=== PATIENT | male | born 1990 | race Two or more races ===

== ENCOUNTER 2017-07-27 19:48 | Emergency (ER) | payer SELFPAY ==
[2017-07-27 20:52] LABS: CHLORIDE,CL 102 mmol/L (101-111); SODIUM,NA 137 mmol/L (135-145)
[2017-07-27] MEDS ORDERED: Sodium Chloride 0.9% 1,000 ML IV ONE (20:56)
[2017-07-27] MEDS ORDERED: Iopamidol 612 MG/ML 100 ML Bottle IVPUSH ONE (20:56)
[2017-07-27] MEDS ORDERED: Acetaminophen 325 MG Tab PO ONE (22:19)
--- NOTE | 2017-07-27 22:23 | EDM.PDOC ---
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 Joint pain on thursday. 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 [No Known Home Meds] 07/27/17 [History] Past Medical History - Past Surgical History Other Musculoskeletal Surgeries/Procedures:: left hand surgery Social & Family History - Tobacco Use Smoking Status *Q: Never Smoker Second Hand Smoke Exposure: No - Caffeine Use Caffeine Use: Reports: Coffee, Soda, Tea - Recreational Drug Use Recreational Drug Use: No ED ROS GENERAL - Review of Systems Review Of Systems: See Below Constitutional: Reports: Fever, Malaise, Decreased Appetite HEENT: Reports: No Symptoms Respiratory: Reports: No Symptoms Cardiovascular: Reports: No Symptoms GI/Abdominal: Reports: Diarrhea, Decreased Appetite. Denies: Nausea, Vomiting : Reports: No Symptoms Skin: Reports: No Symptoms Neurological: Reports: No Symptoms Psychiatric: Reports: No Symptoms ED EXAM, GI/ABD - Physical Exam Exam: See Below Exam Limited By: No Limitations General Appearance: Alert, Mild Distress Eyes: Bilateral: EOMI Ears: Normal External Exam Nose: Normal Inspection Throat/Mouth: Normal Inspection, Normal Lips Head: Atraumatic, Normocephalic Neck: Normal Inspection, Supple, Full Range of Motion Respiratory/Chest: No Respiratory Distress, Lungs Clear, Normal Breath Sounds Cardiovascular: Normal Peripheral Pulses, Regular Rate, Rhythm GI/Abdominal Exam: Normal Bowel Sounds (upper), Soft, No Distention. No: Distended, Guarding, Rigid Extremities: Normal Inspection, Normal Range of Motion Neurological: Alert, Oriented, Normal Cognition Psychiatric: Normal Affect, Normal Mood Skin Exam: Warm, Dry, Intact, Normal Color Course - Vital Signs Last Recorded V/S: Last Vital Signs Temp 100.2 F 07/27/17 22:40 Pulse 100 07/27/17 22:40 Resp 19 07/27/17 22:40 BP 128/81 07/27/17 22:40 Pulse Ox 100 07/27/17 22:40 - Orders/Labs/Meds Orders: Active Orders 24 hr Category Date Time Status CULTURE STREP A CONFIRMATION [] Stat Lab 07/27/17 21:58 Results STREP SCRN A RAPID W CULT CONF [] Stat Lab 07/27/17 21:58 Results Labs: Laboratory Tests 07/27/17 07/27/17 07/27/17 Range/Units 20:28 20:28 20:28 WBC 10.2 H (5.0-10.0) 10^3/uL RBC 4.85 (4.6-6.2) 10^6/uL Hgb 14.8 (14.0-18.0) g/dL Hct 42.8 (40.0-54.0) % MCV 88.2 (80-100) fL MCH 30.5 (27.0-34.0) pg MCHC 34.6 (33.0-35.0) g/dL Plt Count 235 (150-450) 10^3/uL Neut % (Auto) 69.2 (42.2-75.2) % Lymph % (Auto) 17.9 L (20.5-50.1) % [place] % (Auto) 12.0 H (2-8) % Eos % (Auto) 0.6 L (1.0-3.0) % Baso % (Auto) 0.3 (0.0-1.0) % Sodium 137 (135-145) mmol/L Potassium 4.0 (3.6-5.0) mmol/L Chloride 102 (101-111) mmol/L Carbon Dioxide 25.0 (21.0-31.0) mmol/L Anion Gap 14.0 BUN 8 (7-18) mg/dL Creatinine 1.0 (0.6-1.3) mg/dL Est Cr Clr Drug Dosing 150.42 mL/min Estimated GFR (MDRD) > 60 BUN/Creatinine Ratio 8.00 Glucose 127 H (74-105) mg/dL Lactic Acid 1.5 (0.5-2.2) mmol/L Calcium 8.7 (8.4-10.2) mg/dl Total Bilirubin 0.8 (0.2-1.0) mg/dL AST 43 H (10-42) IU/L ALT 32 (10-60) IU/L Alkaline Phosphatase 59 (42-121) IU/L C-Reactive Protein (0.0-1.3) mg/dL Total Protein 7.8 (6.7-8.2) g/dl Albumin 4.3 (3.2-5.5) g/dl Globulin 3.5 Albumin/Globulin Ratio 1.23 Amylase 53 (28-100) U/L Lipase 36 (22-51) U/L Urine Color (YELLOW) Urine Appearance (CLEAR) Urine pH (5.0-9.0) Ur Specific [place] (1.005-1.030) Urine Protein (NEGATIVE) Urine Glucose (UA) (NEGATIVE) Urine Ketones (NEGATIVE) Urine Occult Blood (NEGATIVE) Urine Nitrite (NEGATIVE) Urine Bilirubin (NEGATIVE) Urine Urobilinogen (0.2-1.0) mg/dL Ur Leukocyte Esterase (NEGATIVE) Urine RBC /HPF Urine WBC (0-5/HPF) /HPF Ur Epithelial Cells /HPF Urine Bacteria (0-FEW/HPF) /HPF 07/27/17 07/27/17 Range/Units 20:28 20:35 WBC (5.0-10.0) 10^3/uL RBC (4.6-6.2) 10^6/uL Hgb (14.0-18.0) g/dL Hct (40.0-54.0) % MCV (80-100) fL MCH (27.0-34.0) pg MCHC (33.0-35.0) g/dL Plt Count (150-450) 10^3/uL Neut % (Auto) (42.2-75.2) % Lymph % (Auto) (20.5-50.1) % [place] % (Auto) (2-8) % Eos % (Auto) (1.0-3.0) % Baso % (Auto) (0.0-1.0) % Sodium (135-145) mmol/L Potassium (3.6-5.0) mmol/L Chloride (101-111) mmol/L Carbon Dioxide (21.0-31.0) mmol/L Anion Gap BUN (7-18) mg/dL Creatinine (0.6-1.3) mg/dL Est Cr Clr Drug Dosing mL/min Estimated GFR (MDRD) BUN/Creatinine Ratio Glucose (74-105) mg/dL Lactic Acid (0.5-2.2) mmol/L Calcium (8.4-10.2) mg/dl Total Bilirubin (0.2-1.0) mg/dL AST (10-42) IU/L ALT (10-60) IU/L Alkaline Phosphatase (42-121) IU/L C-Reactive Protein 11.4 H (0.0-1.3) mg/dL Total Protein (6.7-8.2) g/dl Albumin (3.2-5.5) g/dl Globulin Albumin/Globulin Ratio Amylase (28-100) U/L Lipase (22-51) U/L Urine Color Yellow (YELLOW) Urine Appearance Clear (CLEAR) Urine pH 7.5 (5.0-9.0) Ur Specific [place] 1.015 (1.005-1.030) Urine Protein Trace H (NEGATIVE) Urine Glucose (UA) Negative (NEGATIVE) Urine Ketones Negative (NEGATIVE) Urine Occult Blood Small H (NEGATIVE) Urine Nitrite Negative (NEGATIVE) Urine Bilirubin Negative (NEGATIVE) Urine Urobilinogen 0.2 (0.2-1.0) mg/dL Ur Leukocyte Esterase Negative (NEGATIVE) Urine RBC 0-5 /HPF Urine WBC 0-5 (0-5/HPF) /HPF Ur Epithelial Cells Few /HPF Urine Bacteria Few (0-FEW/HPF) /HPF Meds: Medications Discontinued Medications Generic Name Dose Route Start Last Admin Trade Name Freq PRN Reason Stop Dose Admin Acetaminophen 650 mg 07/27/17 22:19 07/27/17 22:24 Tylenol PO 07/27/17 22:20 650 mg NOW ONE Administration Sodium Chloride 1,000 mls @ 999 mls/hr 07/27/17 20:56 07/27/17 21:05 Normal Saline IV 07/27/17 21:56 999 mls/hr .BOLUS ONE Administration Iopamidol 100 ml 07/27/17 20:56 07/27/17 23:27 Isovue-300 (61%) IVPUSH 07/27/17 20:57 100 ml ONETIME ONE Administration - Radiology Interpretation Free Text/Narrative:: abdominal CT unremarkable Departure - Departure Time of Disposition: 22:23 Disposition: Home, Self-Care 01 Condition: Fair Clinical Impression: Gastroenteritis - Discharge Information Instructions: Abdominal Pain, Adult, [id number], Diarrhea, Adult, Easy-to- Read Forms: ED Department Discharge Additional Instructions: light bland diet avoid mild products for 24 hours no spicy food, limit caffeine fluids small amounts more often weak juice, gatorade if symptoms worsen or not improving in 48 hours follow up - My Orders Last 24 Hours: My Active Orders 07/27/17 21:58 CULTURE STREP A CONFIRMATION [RM] Stat STREP SCRN A RAPID W CULT CONF [] Stat - Assessment/Plan Last 24 Hours: My Active Orders 07/27/17 21:58 CULTURE STREP A CONFIRMATION [RM] Stat STREP SCRN A RAPID W CULT CONF [RM] Stat
[2017-07-27 22:57] VITALS: BP 128/81
== END 2017-07-27 22:54 | disposition home or self-care (01) ==
LOC: DL.ED 19:48
DX: K52.9 Noninfective gastroenteritis and colitis, unspecified (principal); Z98.890 Other specified postprocedural states
CPT/HCPCS: 36415; 74177; 80053; 81001; 82150; 83605; 83690; 85025; 86140; 87081; 87430; 87804; 96365; 96366; 99284; A9270; J7030; Q9967